=== PATIENT | male | born 1985 | race Caucasian/White ===

== ENCOUNTER 2020-12-01 14:20 | Outpatient (CLI) | payer OTHER, SELFPAY | END 2020-12-01 14:21 | disposition home or self-care (01) | PROVIDERS: PCP Urology | DX: Z23 Encounter for immunization (principal) | CPT/HCPCS: 0001A; 91300 ==

== ENCOUNTER 2020-12-22 14:22 | Outpatient (CLI) | payer OTHER, SELFPAY | END 2020-12-22 14:23 | disposition home or self-care (01) | LOC: ANHCOVIDVC 14:22 | PROVIDERS: PCP Urology | DX: Z23 Encounter for immunization (principal) | CPT/HCPCS: 0002A; 91300 ==